=== PATIENT | male | born 1980 | race Caucasian/White ===

== ENCOUNTER 2017-09-03 22:07 | Emergency (ER) | payer BC ==
[2017-09-03] MEDS ORDERED: KETOROLAC 30 MG/ML 1 ML VIAL IVP STA (22:44)
--- NOTE | 2017-09-03 22:47 | ED ---
Lower Extremity Injury HPI - General Chief Complaint: Extremity Injury, Lower Stated Complaint: foot swelling Time Seen by Provider: 09/03/17 22:19 Source: patient Mode of arrival: ambulatory Limitations: physical limitation - History of Present Illness Initial Comments: 36-year-old male patient presents to the emergency department today with complaints of right mid foot pain. Patient states that symptoms started on Thursday with pain, redness, and swelling. Patient states that he does have a history of gout and has had 2-3 attacks in the past. Patient states he does take allopurinol and has been taking as directed. He states he did start getting chills today. States he has excruciating pain whenever he steps down onto the foot. He denies any known fever. He denies any recent long car rides , flights, or travel. He denies any history of blood clot. Patient denies any recent rash, shortness breath, chest pain, abdominal pain, nausea, vomiting, diarrhea, constipation, back pain, numbness, tingling, dizziness, weakness, hematuria, dysuria, urinary urgency, urinary frequency, headache, visual changes , or any other complaints. - Related Data Home Medications Medication Instructions Recorded Confirmed Albuterol Sulfate [Proair Hfa] 2 puff INHALATION RT-Q6H PRN 09/03/17 09/03/17 Allopurinol [Zyloprim] 300 mg PO DAILY 09/03/17 09/03/17 Cholecalciferol [Vitamin D3] 1,000 unit PO DAILY 09/03/17 09/03/17 Naproxen Sodium [Aleve] 440 mg PO BID PRN 09/03/17 09/03/17 Previous Rx's Medication Instructions Recorded Indomethacin [Indocin] 50 mg PO TID #15 capsule 09/04/17 predniSONE 50 mg PO DAILY #5 tablet 09/04/17 Allergies Allergy/AdvReac Type Severity Reaction Status Date / Time No Known Allergies Allergy Verified 09/03/17 22:37 Review of Systems ROS Statement: Those systems with pertinent positive or pertinent negative responses have been documented in the HPI. ROS Other: All systems not noted in ROS Statement are negative. Past Medical History Additional Past Medical History / Comment(s): Gout History of Any Multi-Drug Resistant Organisms: None Reported Past Surgical History: No Surgical Hx Reported Past Psychological History: No Psychological Hx Reported Smoking Status: Never smoker Past Alcohol Use History: Occasional Past Drug Use History: None Reported General Exam Limitations: physical limitation General appearance: alert, in no apparent distress, other (This is a well- developed, well-nourished male patient in no acute distress. Vital signs upon presentation are temperature 98.1F, pulse 81, respirations 17, blood pressure 162/87, pulse ox 97% on room air.) Eye exam: Present: normal appearance, PERRL, EOMI. Absent: scleral icterus, conjunctival injection, periorbital swelling ENT exam: Present: normal exam, normal oropharynx, mucous membranes moist Neck exam: Present: normal inspection. Absent: tenderness, meningismus, lymphadenopathy Respiratory exam: Present: normal lung sounds bilaterally. Absent: respiratory distress, wheezes, rales, rhonchi, stridor Cardiovascular Exam: Present: regular rate, normal rhythm, normal heart sounds. Absent: systolic murmur, diastolic murmur, rubs, gallop, clicks GI/Abdominal exam: Present: soft, normal bowel sounds. Absent: distended, tenderness, guarding, rebound, rigid Extremities exam: Present: full ROM, tenderness (Tenderness over the right midfoot), normal capillary refill, other (Patient has swelling and erythema noted to the right foot. Pedal and posttibial pulses are 2+ and equal bilaterally. Cap refills less than 3 seconds. ). Absent: normal inspection, pedal edema, joint swelling, calf tenderness Back exam: Present: normal inspection Neurological exam: Present: alert, oriented X3, CN II-XII intact Psychiatric exam: Present: normal affect, normal mood Skin exam: Present: warm, dry, intact, normal color. Absent: rash Course Vital Signs 09/03/17 22:14 Temperature 98.1 F Pulse Rate 81 Respiratory 17 Rate Blood Pressure 162/87 O2 Sat by Pulse 97 Oximetry Medical Decision Making - Medical Decision Making 36-year-old male patient presented to the emergency department today for complaints of right foot redness, swelling, and pain. Physical examination does reveal mild swelling to the right foot, tenderness over the midfoot. X- ray was negative for any acute abnormalities. Labs reviewed and showed a normal white blood cell, normal uric acid level. Patient will be given a dose of colchicine here in the emergency department. We'll start him on prednisone and indomethacin. We did discuss use of these medications. He is instructed to follow up with his primary care physician for recheck in 1-2 days. Return parameters discussed in detail. He verbalizes understanding and agrees with this plan. - Lab Data Result diagrams: 09/03/17 23:01 09/03/17 23:01 Lab Results 09/03/17 09/03/17 Range/Units 23:01 23:01 WBC 9.4 (3.8-10.6) k/uL RBC 5.18 (4.30-5.90) m/uL Hgb 15.2 (13.0-17.5) gm/dL Hct 42.2 (39.0-53.0) % MCV 81.6 (80.0-100.0) fL MCH 29.5 (25.0-35.0) pg MCHC 36.1 (31.0-37.0) g/dL RDW 12.3 (11.5-15.5) % Plt Count 241 (150-450) k/uL Neutrophils % 60 % Lymphocytes % 25 % Monocytes % 7 % Eosinophils % 6 % Basophils % 1 % Neutrophils # 5.6 (1.3-7.7) k/uL Lymphocytes # 2.4 (1.0-4.8) k/uL Monocytes # 0.6 (0-1.0) k/uL Eosinophils # 0.6 (0-0.7) k/uL Basophils # 0.1 (0-0.2) k/uL Sodium 144 (137-145) mmol/L Potassium 4.1 (3.5-5.1) mmol/L Chloride 103 (98-107) mmol/L Carbon Dioxide 28 (22-30) mmol/L Anion Gap 13 mmol/L BUN 17 (9-20) mg/dL Creatinine 1.00 (0.66-1.25) mg/dL Est GFR (CKD-EPI)AfAm >90 (>60 ml/min/1.73 sqM) Est GFR (CKD-EPI)NonAf >90 (>60 ml/min/1.73 sqM) Glucose 103 H (74-99) mg/dL Uric Acid 4.7 (3.5-8.5) mg/dL Calcium 9.6 (8.4-10.2) mg/dL Total Bilirubin 0.5 (0.2-1.3) mg/dL AST 27 (17-59) U/L ALT 53 (21-72) U/L Alkaline Phosphatase 54 (38-126) U/L Total Protein 6.8 (6.3-8.2) g/dL Albumin 4.4 (3.5-5.0) g/dL - Radiology Data Radiology results: report reviewed, image reviewed 3 views of the right foot are obtained. There is narrowing and spurring at the first MP joint. There is an Achilles calcaneal spur. Metatarsals are intact. See no fracture nor dislocation. There are no erosions. Impression by Dr. Araiza shows degenerative changes. No fracture seen. No sign of inflammatory arthritis. Disposition Clinical Impression: Gout attack Disposition: HOME SELF-CARE Condition: Good Instructions: Gout (ED) Additional Instructions: Take medications as directed. Follow-up with your primary care physician for recheck in 1-2 days. Return here immediately for any new, worsening, or concerning symptoms. Prescriptions: Indomethacin [Indocin] 50 mg PO TID #15 capsule predniSONE 50 mg PO DAILY #5 tablet Is patient prescribed a controlled substance at d/c from ED?: No Referrals: Jacinta Sanchez MD [Primary Care Provider] - 1-2 days Time of Disposition: 00:35
[2017-09-03 23:17] LABS: Basophils # (A) 0.1 k/uL (0-0.2); Basophils % (A) 1 %; Eosinophils # (A) 0.6 k/uL (0-0.7); Eosinophils % (A) 6 %; HCT 42.2 % (39.0-53.0); HGB 15.2 gm/dL (13.0-17.5); Lymphocytes # (A) 2.4 k/uL (1.0-4.8); Lymphocytes % (A) 25 %; MCH 29.5 pg (25.0-35.0); MCHC 36.1 g/dL (31.0-37.0); MCV 81.6 fL (80.0-100.0); Mean Platelet Volume 6.5; Monocytes # (A) 0.6 k/uL (0-1.0); Monocytes % (A) 7 %; Neutrophils # (A) 5.6 k/uL (1.3-7.7); Neutrophils % (A) 60 %; Platelet Count 241 k/uL (150-450); RBC 5.18 m/uL (4.30-5.90); RDW 12.3 % (11.5-15.5); WBC 9.4 k/uL (3.8-10.6)
[2017-09-03 23:23] LABS: ALT 53 U/L (21-72); AST 27 U/L (17-59); Albumin 4.4 g/dL (3.5-5.0); Alkaline Phosphatase 54 U/L (38-126); Anion Gap 13 mmol/L; Blood Urea Nitrogen 17 mg/dL (9-20); Calcium 9.6 mg/dL (8.4-10.2); Carbon Dioxide 28 mmol/L (22-30); Chloride 103 mmol/L (98-107); Glucose 103 mg/dL (74-99); Potassium 4.1 mmol/L (3.5-5.1); Sodium 144 mmol/L (137-145); Total Bilirubin 0.5 mg/dL (0.2-1.3); Total Protein 6.8 g/dL (6.3-8.2); Uric Acid 4.7 mg/dL (3.5-8.5)
--- NOTE | 2017-09-04 00:16 | XR ---
EXAMINATION TYPE: XR foot complete RT DATE OF EXAM: 09/03/2017 COMPARISON: NONE HISTORY: Pain TECHNIQUE: 3 views FINDINGS: There is narrowing and spurring at the first MP joint. There is an Achilles calcaneal spur. Metatarsals are intact. I see no fracture nor dislocation. There are no erosions. IMPRESSION: Degenerative changes. No fracture seen. No sign of inflammatory arthritis.
[2017-09-04] MEDS ORDERED: COLCHICINE 0.6 MG EACH PO STA ×2 (00:29)
[2017-09-04] MEDS ORDERED: INDOMETHACIN 25 MG CAP PO STA (00:30)
[2017-09-04] MEDS ORDERED: predniSONE 50 MG TAB PO STA (00:31)
[2017-09-04 01:02] VITALS: BP 136/63; PULSE 72; RESP 18; TEMP 97.9
== END 2017-09-04 01:02 | disposition home or self-care (01) ==
LOC: EC 22:07
DX: M10.9 Gout, unspecified (principal); Z79.899 Other long term (current) drug therapy
CPT/HCPCS: 36415; 80053; 84550; 85025; 87040; 73630; 99283; 96374; J1885; J7512

== ENCOUNTER → 2017-09-12 | Outpatient (CLI) | payer BC ==
[2017-09-12 17:29] LABS: ALT 59 U/L (21-72); AST 34 U/L (17-59); Blood Urea Nitrogen 18 mg/dL (9-20); Uric Acid 7.3 mg/dL (3.5-8.5)
== END | disposition home or self-care (01) ==
LOC: RADXRMAIN 15:40
PROVIDERS: ATTEND Podiatrist
DX: M10.9 Gout, unspecified (principal)
CPT/HCPCS: 82565; 84450; 84460; 84520; 84550

== ENCOUNTER → 2017-10-26 | Outpatient (CLI) | payer BC ==
[2017-10-26 16:29] LABS: ALT 80 U/L (21-72); AST 42 U/L (17-59); Blood Urea Nitrogen 18 mg/dL (9-20)
== END | disposition home or self-care (01) ==
LOC: LABWHC1 15:51
PROVIDERS: ATTEND Podiatrist
DX: M10.9 Gout, unspecified (principal)
CPT/HCPCS: 36415; 82565; 84450; 84460; 84520; 84550

== ENCOUNTER → 2017-11-23 | Outpatient (CLI) | payer BC ==
[2017-11-23 17:48] LABS: ALT 73 U/L (21-72); AST 38 U/L (17-59); Blood Urea Nitrogen 15 mg/dL (9-20); Uric Acid 6.9 mg/dL (3.5-8.5)
== END | disposition home or self-care (01) ==
LOC: LABWHC1 16:16
PROVIDERS: ATTEND Podiatrist
DX: M10.9 Gout, unspecified (principal)
CPT/HCPCS: 36415; 82565; 84450; 84460; 84520; 84550

== ENCOUNTER → 2018-04-29 | Outpatient (CLI) | payer BC ==
[2018-04-29 16:04] LABS: Uric Acid 9.3 mg/dL (3.7-8.7)
== END ==
LOC: LABWHC1 08:46
PROVIDERS: ATTEND Podiatrist
DX: M10.9 Gout, unspecified (principal)
CPT/HCPCS: 36415; 82565; 84450; 84460; 84520; 84550

== ENCOUNTER → 2018-08-13 | Outpatient (CLI) | payer BC ==
[2018-08-13 20:08] LABS: Uric Acid 8.9 mg/dL (3.7-8.7)
== END | disposition home or self-care (01) ==
LOC: LABWHC1 12:42
PROVIDERS: ATTEND Podiatrist
DX: M10.9 Gout, unspecified (principal)
CPT/HCPCS: 36415; 82565; 84450; 84460; 84520; 84550

== ENCOUNTER → 2018-09-10 | Outpatient (CLI) | payer BC ==
[2018-09-10 16:47] LABS: Uric Acid 7.5 mg/dL (3.7-8.7)
== END ==
LOC: LABWHC1 09:39
PROVIDERS: ATTEND Podiatrist
DX: M10.9 Gout, unspecified (principal)
CPT/HCPCS: 36415; 82565; 84450; 84460; 84520; 84550

== ENCOUNTER → 2018-11-24 | Outpatient (CLI) | payer BC ==
[2018-11-25 06:03] LABS: African American GFR (CKD) 97.5 (60.0-200.0); Uric Acid 8.1 mg/dL (3.7-8.7)
== END | disposition home or self-care (01) ==
LOC: LABWHC1 14:49
PROVIDERS: ATTEND Podiatrist
DX: M10.9 Gout, unspecified (principal)
CPT/HCPCS: 36415; 82565; 84450; 84460; 84520; 84550

== ENCOUNTER → 2019-01-21 | Outpatient (CLI) | payer BC ==
[2019-01-22 01:11] LABS: African American GFR (CKD) 109.4 (60.0-200.0); Uric Acid 8.5 mg/dL (3.7-8.7)
== END | disposition home or self-care (01) ==
LOC: LABWHC1 17:35
PROVIDERS: ATTEND Podiatrist
DX: M10.9 Gout, unspecified (principal)
CPT/HCPCS: 36415; 82565; 84450; 84460; 84520; 84550

== ENCOUNTER → 2019-03-18 | Outpatient (CLI) | payer BC ==
[2019-03-18 23:25] LABS: African American GFR (CKD) 109.4 (60.0-200.0); Uric Acid 8.1 mg/dL (3.7-8.7)
== END ==
LOC: LABWHC1 16:17
PROVIDERS: ATTEND Podiatrist
DX: M10.9 Gout, unspecified (principal)
CPT/HCPCS: 36415; 82565; 84450; 84460; 84520; 84550

== ENCOUNTER → 2019-04-26 | Outpatient (CLI) | payer BC ==
--- NOTE | 2019-04-26 10:41 | US ---
EXAMINATION TYPE: US liver DATE OF EXAM: 04/26/2019 COMPARISON: 03/26/2011 CLINICAL HISTORY: R74.8 ABN LEVELS OF OTHER SERUM ENZYMES. elevated labs, large body habitus EXAM MEASUREMENTS: Liver Length: 20.2 cm Gallbladder Wall: 0.1 cm CBD: 0.4 cm Right Kidney: 12.8 x 5.4 x 5.7 cm Pancreas: limited views appears. Limited by overlying bowel gas. Liver: intercostal imaging due to bowel gas, liver difficult to penetrate Gallbladder: wnl Evidence for sonographic Simons's sign: no CBD: wnl Right Kidney: wnl IMPRESSION: 1. Increased echo pattern to the liver is nonspecific can be associated with hepatic steatosis, diffu se hepatocellular disease or hepatitis. Correlate clinically.
[2019-04-26 12:07] LABS: Prothrombin Time 10.6 sec (9.0-12.0)
[2019-04-26 12:08] LABS: ALT 87 U/L (21-72); AST 51 U/L (17-59); African American GFR (CKD) >90 (>60 ml/min/1.73 sqM); Albumin 4.4 g/dL (3.5-5.0); Alkaline Phosphatase 48 U/L (38-126); Anion Gap 9 mmol/L; Basophils % (A) 1 %; Blood Urea Nitrogen 10 mg/dL (9-20); Calcium 9.2 mg/dL (8.4-10.2); Carbon Dioxide 29 mmol/L (22-30); Chloride 105 mmol/L (98-107); Eosinophils # (A) 0.3 k/uL (0-0.7); Eosinophils % (A) 4 %; Glucose 94 mg/dL (74-99); HCT 43.7 % (39.0-53.0); HGB 15.1 gm/dL (13.0-17.5); Lymphocytes # (A) 2.3 k/uL (1.0-4.8); Lymphocytes % (A) 31 %; MCH 29.5 pg (25.0-35.0); MCHC 34.5 g/dL (31.0-37.0); MCV 85.6 fL (80.0-100.0); Mean Platelet Volume 7.5; Monocytes # (A) 0.3 k/uL (0-1.0); Monocytes % (A) 4 %; Neutrophils # (A) 4.2 k/uL (1.3-7.7); Neutrophils % (A) 58 %; Non-African American GFR(CKD) >90 (>60 ml/min/1.73 sqM); Platelet Count 222 k/uL (150-450); Potassium 4.5 mmol/L (3.5-5.1); RBC 5.11 m/uL (4.30-5.90); RDW 12.3 % (11.5-15.5); Sodium 143 mmol/L (137-145); Total Bilirubin 0.7 mg/dL (0.2-1.3); Total Protein 7.2 g/dL (6.3-8.2); WBC 7.3 k/uL (3.8-10.6)
[2019-04-26 15:49] LABS: % Iron Saturation 26.69 (15.00-50.00); Iron 79 ug/dL (65-175); Total Iron Binding Capacity 296 ug/dL (228-460)
[2019-04-26 16:14] LABS: Alpha Fetoprotein, Tumor Mkr <2.5 ng/mL (0.0-7.9)
[2019-04-26 16:15] LABS: Ferritin 574.6 ng/mL (22.0-322.0)
[2019-04-26 17:10] LABS: Hepatitis A Antibody IgM Non-Reactive (Non-Reactive); Hepatitis B Core IgM Non-Reactive (Non-Reactive); Hepatitis B Surface Antigen Non-Reactive (Non-Reactive); Hepatitis C IgG Antibody Non-Reactive (Non-Reactive)
[2019-04-26 19:59] LABS: Protein, Total 6.5 g/dL (6.2-8.2)
[2019-04-27 11:46] LABS: Liver/Kidney Microsome Antibod 1.7 UNITS (<=20)
[2019-04-28 09:21] LABS: Albumin 4.06 g/dL (3.80-4.90); Gamma Globulin 0.72 g/dL (0.70-1.50)
== END | disposition home or self-care (01) ==
LOC: RADUSWWP 10:11
PROVIDERS: ATTEND Internal Medicine Gastroenterology
DX: R74.8 Abnormal levels of other serum enzymes (principal)
CPT/HCPCS: 36415; 76705; 80053; 80074; 81596; 82103; 82105; 82390; 82728; 83516; 83540; 83550; 84165; 85025; 85610; 86038; 86376

== ENCOUNTER → 2020-02-13 | Outpatient (CLI) | payer BC ==
[2020-02-13 15:12] LABS: African American GFR (CKD) 108.6 (60.0-200.0); Non-African American GFR(CKD) 93.7 (60.0-200.0); Uric Acid 8.6 mg/dL (3.7-8.7)
== END | disposition home or self-care (01) ==
LOC: LABWHC1 09:31
PROVIDERS: ATTEND Podiatrist
DX: M10.9 Gout, unspecified (principal)
CPT/HCPCS: 36415; 82565; 84450; 84460; 84520; 84550

== ENCOUNTER → 2021-08-14 | Outpatient (CLI) | payer BC ==
[2021-08-14 14:12] LABS: African American GFR (CKD) 122.5 (60.0-200.0); Blood Urea Nitrogen 14.2 mg/dL (9.0-27.0); Non-African American GFR(CKD) 105.7 (60.0-200.0); Uric Acid 5.7 mg/dL (3.7-8.7)
== END | disposition home or self-care (01) ==
LOC: LABWHC1 07:12
PROVIDERS: ATTEND Podiatrist
DX: M10.9 Gout, unspecified (principal)
CPT/HCPCS: 36415; 82565; 84450; 84460; 84520; 84550

== ENCOUNTER → 2021-10-29 | Outpatient (CLI) | payer BC ==
[2021-10-29 18:22] LABS: African American GFR (CKD) 103.4 (60.0-200.0); Blood Urea Nitrogen 13.1 mg/dL (9.0-27.0); Non-African American GFR(CKD) 89.2 (60.0-200.0); Uric Acid 7.4 mg/dL (3.7-8.7)
== END | disposition home or self-care (01) ==
LOC: LABWHC1 11:06
PROVIDERS: ATTEND Podiatrist
DX: M10.9 Gout, unspecified (principal)
CPT/HCPCS: 36415; 82565; 84450; 84460; 84520; 84550

== ENCOUNTER → 2021-11-29 | Outpatient (CLI) | payer BC ==
[2021-11-29 14:37] LABS: African American GFR (CKD) 110.6 (60.0-200.0); Non-African American GFR(CKD) 95.4 (60.0-200.0); Uric Acid 5.7 mg/dL (3.7-8.7)
== END | disposition home or self-care (01) ==
LOC: LABWHC1 09:14
PROVIDERS: ATTEND Podiatrist
DX: M10.9 Gout, unspecified (principal)
CPT/HCPCS: 36415; 82565; 84450; 84460; 84520; 84550

== ENCOUNTER → 2022-01-01 | Outpatient (CLI) | payer BC ==
[2022-01-02 02:17] LABS: African American GFR (CKD) 90.5 (60.0-200.0); Blood Urea Nitrogen 19.3 mg/dL (9.0-27.0); Non-African American GFR(CKD) 78.1 (60.0-200.0); Uric Acid 7.8 mg/dL (3.7-8.7)
== END | disposition home or self-care (01) ==
LOC: LABWHC1 15:52
PROVIDERS: ATTEND Podiatrist
DX: M10.9 Gout, unspecified (principal)
CPT/HCPCS: 36415; 82565; 84450; 84460; 84520; 84550

== ENCOUNTER → 2022-03-07 | Outpatient (CLI) | payer BC ==
[2022-03-07 16:23] LABS: African American GFR (CKD) 107.1 (60.0-200.0); Blood Urea Nitrogen 15.8 mg/dL (9.0-27.0); Non-African American GFR(CKD) 92.4 (60.0-200.0); Uric Acid 7.4 mg/dL (3.7-8.7)
== END | disposition home or self-care (01) ==
LOC: LABWHC1 09:41
PROVIDERS: ATTEND Podiatrist
DX: M10.9 Gout, unspecified (principal)
CPT/HCPCS: 36415; 82565; 84450; 84460; 84520; 84550